=== PATIENT | male | born 1965 ===

== ENCOUNTER 2017-12-05 11:41 | Day surgery (SDC) | payer OTHER ==
[~2017-12-05] VITALS: Ht 182.9 cm; Wt 93.3 kg
[~2017-12-05 11:41] MED LIST: RED RICE YEAST; VITAMIN D; [UNRECOGNIZED DRUG - REMARK]
== END 2017-12-05 14:28 | disposition home or self-care (01) ==
LOC: ORSCSDS 11:41
PROVIDERS: Surgery
PROC: 0DBN8ZX Excision of Sigmoid Colon, Via Natural or Artificial Opening Endoscopic, Diagnostic (ICD-10-PCS; principal; 2017-12-05 13:30)
DX: Z12.11 Encounter for screening for malignant neoplasm of colon (principal); D12.5 Benign neoplasm of sigmoid colon; I10 Essential (primary) hypertension; E78.5 Hyperlipidemia, unspecified
CPT/HCPCS: 88305; J7120

== ENCOUNTER 2023-04-21 06:49 | Day surgery (SDC) | payer OTHER ==
[~2023-04-21] VITALS: Ht 182.9 cm; Wt 97.5 kg
[2023-04-21] MEDS ORDERED: LISI20 (07:08)
[2023-04-21] MEDS ORDERED: ZOCOR20 MG (07:08)
--- NOTE | 2023-04-21 09:56 | NUR ---
04/21/23 [id number] Tosha Joseph IV WNL, PT TOW
== END 2023-04-21 09:07 | disposition home or self-care (01) ==
LOC: ORSCSDS 06:49
PROVIDERS: Surgery
PROC: 0DBP8ZX Excision of Rectum, Via Natural or Artificial Opening Endoscopic, Diagnostic (ICD-10-PCS; principal; 2023-04-21 08:00)
PROC: 0DBM8ZX Excision of Descending Colon, Via Natural or Artificial Opening Endoscopic, Diagnostic (ICD-10-PCS; principal; 2023-04-21 08:00)
PROC: 0DBK8ZX Excision of Ascending Colon, Via Natural or Artificial Opening Endoscopic, Diagnostic (ICD-10-PCS; principal; 2023-04-21 08:00)
PROC: 0DBN8ZX Excision of Sigmoid Colon, Via Natural or Artificial Opening Endoscopic, Diagnostic (ICD-10-PCS; principal; 2023-04-21 08:00)
DX: Z12.11 Encounter for screening for malignant neoplasm of colon (principal); Z86.010 Personal history of colon polyps; D12.2 Benign neoplasm of ascending colon; K63.5 Polyp of colon; D12.5 Benign neoplasm of sigmoid colon; K62.1 Rectal polyp; I10 Essential (primary) hypertension; E78.5 Hyperlipidemia, unspecified; E66.9 Obesity, unspecified; Z68.30 Body mass index [BMI] 30.0-30.9, adult; Z79.899 Other long term (current) drug therapy
CPT/HCPCS: 88305; J2704; J7120